=== PATIENT | female | born 1980 | race Caucasian/White ===

== ENCOUNTER → 2020-10-18 | Outpatient (CLI) | payer BC ==
--- NOTE | 2020-10-18 16:18 | RAD ---
EXAMINATION: US PELVIS COMPLETE, 10/18/2020 12:43 PM CLINICAL INDICATION: Bloating TECHNIQUE: Grayscale, color and spectral Doppler ultrasound images of the pelvis via transabdominal a pproach. COMPARISON: None. FINDINGS: The uterus measures 8.3 x 4.2 x 3.7 cm. The endometrial stripe measures 7 mm in thickness. No myometr ial mass. The right ovary measures 2.9 x 1.8 x 1.5 cm. The left ovary measures 2.6 x 2.2 x 1.4 cm. There is nor mal ovarian blood flow bilaterally. No ovarian mass, adnexal mass, or free fluid. No adnexal mass or free fluid. IMPRESSION: Normal pelvic ultrasound. Electronically signed by: Altagracia Winters MD (10/18/2020 4:16 PM) [id number]
--- NOTE | 2020-10-18 16:42 | RAD ---
DATE: 10/18/2020 EXAM: MAMMO KAYLYNN MALCOLM DEVINE, BREAST LEFT HISTORY: Bilateral diffuse breast pain with menstrual cycle since December. COMPARISON: 04/28/2018 This study was interpreted with the benefit of Computerized Aided Detection (CAD). Breast Density: HETERO The breast parenchyma is heterogenously dense, which could reduce sensitivity of mammography. Breast parenchyma level C. FINDINGS: Mammogram: There is a nodular asymmetry in the left breast at approximately 9:00 just medial to the nipple. This does not completely resolve on spot compression but changes configuration. No other evidence of mass, suspicious calcifications, or architectural distortion in either breast. Ultrasound: Ultrasound of the outer left breast in the area of mammographic concern demonstrates dense fibroglandular tissue at 9:00. There is an ovoid hypoechoic circumscribed mass at 9:00 1 cm from the nipple measuring 6 x 5 x 3 mm. Is parallel in orientation and has some posterior acoustic enhancement, likely calculated cyst. IMPRESSION: 1. Probably benign 6 mm hypoechoic mass at 9:00 1 cm from the nipple in the left breast, likely a minimally complicated cyst. Recommend left breast ultrasound in 6 months to ensure study. BI-RADS CATEGORY: 3 PROBABLY BENIGN FINDING(S)-SHORT INTERVAL FOLLOW-UP SUGGESTED RECOMMENDED FOLLOW-UP: 6M 6 MONTH FOLLOW-UP PQRS compliance statement: Patient information was entered into a reminder system with a target due date for the next mammogram. Mammography is a sensitive method for finding small breast cancers, but it does not detect them all and is not a substitute for careful clinical examination. A negative mammogram does not negate a clinically suspicious finding and should not result in delay in biopsying a clinically suspicious abnormality. "Our facility is accredited by the [employer] Mammography Program."
== END ==
LOC: US 12:34
PROVIDERS: ATTEND Nurse Practitioner Women's Health
DX: N63.42 Unspecified lump in left breast, subareolar (principal); R14.0 Abdominal distension (gaseous)
CPT/HCPCS: 76641; 76856; 77066; G0279; 77062

== ENCOUNTER → 2021-04-17 | Outpatient (CLI) | payer BC ==
--- NOTE | 2021-04-17 15:17 | RAD ---
EXAM: Left breast sonogram. HISTORY: 40-year-old female presents for follow-up evaluation of findings within the left breast demo nstrated on a sonogram performed 10/18/2020. TECHNIQUE: Sonographic imaging of the left breast targeted to the site of prior findings was performe d. COMPARISON: 10/18/2020. FINDINGS: There is a stable 5 mm oval circumscribed hypoechoic lesion at the 9:00 position 1 cm from the nipple, the appearance of which favors a benign cyst with internal debris. There is surrounding d ense breast parenchyma. There is no new suspicious sonographic finding. IMPRESSION: 1. Stable 5 mm cyst with suspected internal debris and surrounding dense breast parenchymal within th e 9:00 position of the anterior left breast. 2. No new suspicious sonographic finding. 3. BI-RADS Category 2: Benign finding(s). The patient will be due for bilateral screening mammography in 6 months according to a previously established mammography interval. Electronically signed by: Indira Jarquin MD (04/17/2021 3:14 PM) [id number]
== END ==
LOC: US 14:52
PROVIDERS: ATTEND Nurse Practitioner Women's Health
DX: N60.02 Solitary cyst of left breast (principal)
CPT/HCPCS: 76642